=== PATIENT | female | born 1980 | race Caucasian/White ===

== ENCOUNTER 2020-09-03 16:06 | Emergency (ER) | payer OTHER, SELFPAY ==
[2020-09-03 16:26] VITALS: BP 128/68; PULSE 90; RESP 18; TEMP 36.7; O2SAT 92; BMI 44.9
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
--- NOTE | 2020-09-03 17:48 | PC.NURSE ---
PLAN IS TO LET PT SLEEP AND ADDRESS HOW PT WILL GET HOME LATER. PT STATES NO RIDE HOME AND UNABLE TO AMBULATE LONG DISTANCES
[2020-09-03 19:28] VITALS: BP 109/54; PULSE 98; RESP 16; O2SAT 98
--- NOTE | 2020-09-04 00:38 | PC.NURSE ---
pt has been sleeping for most of her stay in the er. pt reports that she has no ride home. assisted pt with charging phone, so she can try and call for a ride. pt states several times that she will not be able to find a ride home. pt ambulatory to bathroom with steady gait. pt's dscharge paperwork printed, pt ready as soon as she has a ride. case management tried to get her a lyft, yarn preparation supervisor was willing to give taxi voucher but cabs stopped running after 9pm.
--- NOTE | 2020-09-04 04:54 | PC.NURSE ---
PT AWAKE, RESTING ON STRETCHER. PT ASKING ABOUT HOSPITAL SHUTTLE. UNSURE IF SHUTTLE IS RUNNING, PT TOLD WE WILL GIVE HER A BUS PASS IN THE MORNING.
[2020-09-04 05:06] VITALS: BP 116/59; PULSE 90; RESP 16; TEMP 36; O2SAT 97
== END 2020-09-04 06:05 | disposition home or self-care (01) ==
PROVIDERS: Emergency Provider Emergency Medicine
DX: F10.920 Alcohol use, unspecified with intoxication, uncomplicated (principal); M54.5 Low back pain
CPT/HCPCS: 99284

== ENCOUNTER 2025-06-22 15:09 | Inpatient (IN) | payer MEDICAID, SELFPAY ==
[2025-06-22] VITALS (8 sets, daily range): BP systolic 123–160; BP diastolic 80–111; PULSE 71–114; RESP 16–20; TEMP 36.7–37.1; O2SAT 95–99; BMI 36.2
--- NOTE | ~2025-06-22 | CT_ITS ---
CLINICAL HISTORY: fall neck pain CT cervical spine without IV contrast Comparison: None provided Findings: Straightening of normal cervical lordosis, C-collar is present. no dislocation or spondylolisthesis. No acute fracture or suspicious osseous lesion. Bridging prevertebral osteophyte C6-7, small prevertebral osteophytes C5, mild osteoarthrosis of the median atlantoaxial articulation. Disc heights are maintained. Unremarkable facets. Unremarkable prevertebral soft tissue. Lung apices clear. Unremarkable soft tissue of the neck and visualized intracranial contents. Impression: 1. No acute finding. 2. Mild degenerative changes of the cervical spine. This document has been electronically signed by: Shauna Gonsales MD on 06/22/2025 16:56:37
--- NOTE | ~2025-06-22 | CT_ITS ---
CLINICAL HISTORY: fall head strike hematoma CT head without contrast Comparison: None Findings: No acute hemorrhage, acute major vascular distribution infarct, intracranial mass, midline shift or hydrocephalus. Empty sella. Cystic lesion of the pineal gland, partially calcified thin cystic wall 8 x 7 x 8 mm. Visualized paranasal sinuses and mastoid air cells normal. Orbits unremarkable. The cranium appears intact. Soft tissue contusion of the left skull base with lobulated subcutaneous hyperdensity roughly 4.2 x 1.2 cm on the axial plane, 3.4 cm in CC dimension, suggestive of hematoma. Impression: 1. No acute intracranial finding. 2. Soft tissue contusion and hematoma of the left skull base. 3. 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 4. Incidental note of empty sella. This document has been electronically signed by: Shauna Gonsales MD on 06/22/2025 17:02:26
--- NOTE | ~2025-06-22 | CT_ITS ---
CLINICAL HISTORY: fal;l chest trauma Exam: CT chest with IV contrast Comparison: None provided Findings: Heart, great vessels and mediastinum are unremarkable. No pericardial effusion. No acute vascular injury. No lymphadenopathy. No actionable thyroid nodule. Unremarkable imaged lower neck and chest wall. No acute infiltrates or pulmonary injury. Patent central airway. No pleural effusion or pneumothorax. No significant pulmonary nodule or mass. No acute fracture or traumatic malalignment. Mild degenerative changes of the thoracic spine. Please see separate CT abdomen and pelvis report. Impression: No acute finding. This document has been electronically signed by: Shauna Gonsales MD on 06/22/2025 17:04:57
--- NOTE | ~2025-06-22 | XR_ITS ---
CLINICAL HISTORY: FALL Exam: Pelvis and bilateral hip five views Comparison: None Findings: 6 images were obtained. No acute fracture or traumatic malalignment. No apparent degenerative or arthritic changes of the hips, SI joints or pubic symphysis. Soft tissue calcification lateral to the anterior iliac crest. Excreted contrast in the left distal ureter noted. Impression: No acute finding. This document has been electronically signed by: Shauna Gonsales MD on 06/22/2025 16:47:02
--- NOTE | ~2025-06-22 | CT_ITS ---
CLINICAL HISTORY: Abdominal trauma fall Exam: CT abdomen and pelvis with IV contrast Comparison: None provided Findings: Please see separate CT chest report. Liver is enlarged, 18.4 cm in craniocaudad dimension, diffuse steatosis, no hepatic lesion is seen. Patent hepatic and portal veins. Gallbladder, spleen, pancreas, adrenal glands, kidneys, ureters are unremarkable. Lobulated renal contours bilaterally, left renal upper pole scars. Nearly empty bladder, limiting evaluation, no calculus or perivesicular fatty stranding. Unremarkable uterus and left adnexa. Right ovarian cyst 2.8 cm, probably dominant follicle. Small amount of liquid stool is noted, the cecum to descending colon is decompressed, limiting evaluation, there is suggestion of the mural thickening of ascending colon, engorged vasa recta of the cecum to descending colon. Mild diffuse mural thickening of the rectosigmoid. Mild pericolonic fatty haziness in the left lower quadrant, no colonic diverticulosis. Stomach and small bowel are unremarkable. Appendix is not seen, no pericecal inflammation. Probable lipomatosis of ileocecal valve. Unremarkable vasculature. No bulky lymph nodes. No ascites or pneumoperitoneum. Small fat containing umbilical hernia, no fatty stranding. No acute fracture or dislocation. Mild degenerative changes of lumbar spine. Impression: 1. No acute traumatic injury. 2. Suspect mild pancolitis. 3. Hepatomegaly with steatosis. This document has been electronically signed by: Shauna Gonsales MD on 06/22/2025 17:14:24
--- NOTE | 2025-06-22 15:17 | ED_ITS ---
HPI - General Adult General Chief complaint: Seizure Stated complaint: sz Etoh w/drawl Time Seen by Provider: 06/22/25 15:11 Source: patient and EMS Mode of arrival: EMS Limitations: other (poor historian ) History of Present Illness ED Provider: SEAN Painting HPI narrative: Chief Complaint: ?I think I had some kind of seizure in the bath and now I have a huge lump on the back of my head.? History of Present Illness: Viky presents from home after an unwitnessed event while in the bathtub earlier today ( unclear when) . She reports ?something like a seizure? followed by discovery of a large hematoma over the back left side of her head. She does not recall the exact circumstances of the event or whether a seizure truly occurred. She notes persistent headache, nausea, and dizziness for several days and states she is ?having trouble walking.? She also reports new bruising to her legs. Denies chest pain or shortness of breath. Last alcohol consumption was 4 days ago after an approximate 10-day binge; she reports being 4 days sober and denies any prior alcohol-withdrawal seizures drinks 1 L of 99 a day ( thinks thats vodka but nusure) . Admits prior cocaine use, denies any injection drug use. Related Data Allergies Allergy/AdvReac Type Severity Reaction Status Date / Time Penicillins (PENICILLINS) Allergy Intermediate RASH Verified 06/22/25 15:21 codeine (CODEINE) Allergy Unknown GI UPSET Verified 06/22/25 15:21 Review of Systems 2 Review of Systems: Review of Systems: ? General: no information provided. ? HEENT: Positive for headache, large hematoma back left scalp. ? Neurologic: Reports dizziness for several days, difficulty ambulating, possible seizure episode with amnesia. ? GI: Positive for nausea. ? Skin/MSK: Reports rash; reports bruising to legs. ? Cardiopulmonary: Denies chest pain, denies shortness of breath. (Only systems reviewed above; no additio nal systems discussed.) Yes all other systems are reviewed and are negative PMFSH Past Medical History Attestation statement: The following information was validated with the patient. Source: old records reviewed and nursing notes reviewed Social History Social History Alcohol intake: current Alcohol type: hard liquor Smoked in Last 30 Days: No Use of substances other than those prescribed or required for medical reasons: Yes Substance Use Type: Crack/Cocaine Advance Directives: No Advance Directives Information Provided: No Patient : No Physical Exam ED Exam Exam: Appearance: Alert.? Oriented X3.? No acute distress.? Head: Normocephalic, traumatic appearing Large left occipital scalp hematoma Eyes: Pupils equal, round and reactive to light.? ENT: Pharynx normal.? Neck: Normal inspection.? Neck supple.?+collar in place CVS: Normal heart rate and rhythm.? Pulses normal.? Respiratory: No respiratory distress.? Breath sounds normal.? Abdomen: Soft and nontender.? Skin: Skin warm and dry.? Normal skin color.? Normal skin turgor.?+ superficial abrasions/road rash to right buttocks to left buttocks Extremities: No lower extremity edema.? No calf ttp. 5/5 strength to bilateral upper and lower extremities Back: No midline tenderness, no C-spine tenderness, full range of motion, no CVA tenderness bilaterally Neuro: Oriented X 3.? No motor deficit.? No sensory deficit. CN 2-12 intact Vital Signs: Vital Signs - 24 hr 06/22/25 15:18 06/22/25 16:17 06/22/25 17:30 Temperature 98.1 F 98.1 F 98.7 F Pulse Rate 114 H 105 H 98 Respiratory Rate 20 18 18 Blood Pressure 148/111 H 142/99 H 150/99 H Pulse Oximetry 96 96 99 Oxygen Delivery Method Room Air Room Air Room Air BMI result Body Mass Index 36.2 vss Course Reevaluation(s) Reevaluation #1: Patient reports difficulty with ambulating, left lower extremity noted to have ecchymosis to left anterior castro. Time: 15:35 Reevaluation #2: Patient's CBC with leukopenia this is a new finding alsonoted to have thormbocytopenia 18. Chemistry with low potassium 3.2 IV potassium ordered. She has an anion gap of 23 likely in the setting of alcohol use. BUN Creatinine slightly higher than usual. Will encourage p.o. hydration. Total bili 3.8 transaminases elevated she does not have abdominal pain or tenderness to palpation on exam this could be in the setting of hepatitis. Hepatitis panel will be added. CT abdomen pelvis pending. Total CPK 1267 IV fluids running. Time: 15:40 Reevaluation #3: Lactic acid 3.0 at this time infection suspected will give antibiotics as well as a 30 cc/kilos bolus. Scans are still pending. Patient remains without seizure-like activity. She was started on phenobarbital At this time if sepsis focused exam was and at the bedside Time: 17:06 Additional Reevaluation(s): CT chest no acute findings. CT head with no acute intracranial findings soft tissue contusion and hematoma of the left skull base. 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 empty sella. No acute findings in the cervical spine. Hip x-ray no acute finding. CT abdomen pelvis pending CT abdomen pelvis with no acute traumatic injury suspected mild russo colitis hepatomegaly with steatosis. Plan hospital admission Medications Administered Generic Name Dose Route Start Last Admin Trade Name Freq PRN Reason Stop Dose Admin Magnesium Sulfate 2 gm in 50 mls @ 25 mls/hr 06/22/25 16:03 06/22/25 16:13 Magnesium Sulfate/H2o IV 06/22/25 18:02 25 mls/hr ONCE ONE Administration Sodium Chloride 2,784 mls @ 2,784 mls/hr 06/22/25 17:04 06/22/25 17:07 Ns 30 ml/kg infuse over 1 hr (2784 ml) 06/22/25 18:03 2,784 mls/hr IV Administration .Q1H STA Potassium Chloride 10 meq in 100 mls @ 100 mls/hr 06/22/25 17:15 06/22/25 17:13 Potassium Chloride/H20 IV 06/22/25 19:14 100 mls/hr Q1H KATHERIN Administration Discontinued Medications Generic Name Dose Route Start Last Admin Trade Name Freq PRN Reason Stop Dose Admin Diazepam 2.5 mg 06/22/25 15:11 06/22/25 15:32 Diazepam 10 Mg/2 Ml Cartridge IVPUSH 06/22/25 15:12 2.5 mg STAT STA Administration Diphtheria/Tetanus/Acell Pertussis 0.5 ml 06/22/25 17:08 06/22/25 17:13 Diphth,Pertus(Acell),Tet Adult 0.5 Ml Syringe IM 06/22/25 17:09 0.5 ml .ONCE ONE Administration Folic Acid 1 mg 06/22/25 16:03 06/22/25 17:23 Folic Acid 1 Mg Tablet PO 06/22/25 16:04 1 mg ONCE ONE Administration Ceftriaxone Sodium 1 gm/ 50 mls @ 100 mls/hr 06/22/25 16:23 06/22/25 17:19 Sodium Chloride IV 06/22/25 16:52 Infused ONCE ONE Infusion Iohexol 100 ml 06/22/25 15:45 06/22/25 15:46 Iohexol 350 Mg/Ml 100 Ml Infus..Btl IV 06/22/25 15:46 85 ml ONCE ONE Administration Phenobarbital Sodium 251 mg 06/22/25 17:15 06/22/25 17:23 Phenobarbital Sodium 130 Mg/Ml Im Once IM 06/22/25 17:16 251 mg ONCE ONE Administration Thiamine HCl 100 mg 06/22/25 16:03 06/22/25 17:23 Thiamine Hcl 100 Mg Tablet PO 06/22/25 16:04 100 mg ONCE ONE Administration Medical Decision Making Medical Decision Making [facility] Narrative: 1519 Unwitnessed head injury with possible seizure, large scalp hematoma, and history of recent heavy alcohol use. Must rule out intracranial hemorrhage and other acute injuries. Problem #1: Possible intracranial hemorrhage / head trauma Assessment: Large left occipital scalp hematoma following unwitnessed event; patient has amnesia for event and reports seizure-like activity. Ongoing headache, dizziness, nausea, and gait disturbance raise concern for intracranial pathology. Plan: * CT head (non-contrast) STAT ? already ordered. * CT cervical spine, chest, abdomen, pelvis ? ordered to evaluate for additional traumatic injuries. * Draw CBC, CMP, coagulation studies, EtOH level, and additional labs after CT imaging as discussed. * Reassess following imaging results; proceed with neurosurgical consult if intracranial bleed identified. Problem #2: Alcohol use disorder, recent heavy use Assessment: Patient reports 10-day binge ending 4 days ago, currently sober x4 days, no prior withdrawal seizures but at risk for withdrawal complications. Plan: * Monitor for signs/symptoms of alcohol withdrawal while in ED. * Include EtOH level on initial labs. * Seizure precautions * Diazepam to raise seizure threshold Follow-up: Will update plan based on imaging and lab findings; disposition to be determined after full assessment. Will rule out traumatic injury to head, neck, chest, abdomen and pelvis. Differential Diagnosis Differential Diagnoses: The differential diagnosis associated with the presentation includes (Will rule out traumatic injury to head, neck, chest, abdomen and pelvis.) Admission/Observation Consideration of admission/observation: Escalation of care including admission/observation considered Consult Healthcare Provider Management of the patient was discussed with: Hospitalist Lab Data MDM Lab Attestation statement: I reviewed the patient's lab results. 06/22/25 15:30 06/22/25 15:30 Labs: Lab Results 06/22/25 06/22/25 Range/Units 15:30 16:29 WBC 4.5 L (4.8-10.8) X10*3/uL RBC 3.89 L (4.20-5.50) X10*6/uL Hgb 12.8 (12.0-16.0) g/dl Hct 36.4 L (37.0-47.0) % MCV 93.6 (80.0-98.0) fL MCH 32.9 (27.0-33.0) pg MCHC 35.2 H (31.0-35.0) g/dl RDW 15.8 (11.0-16.0) % Plt Count 18 L* (160-400) X10*3/uL MPV 13.3 H (9.4-12.3) fL Immature Gran % (Auto) Cancelled Neut % (Auto) Cancelled Lymph % (Auto) Cancelled [place] % (Auto) Cancelled Eos % (Auto) Cancelled Baso % (Auto) Cancelled Lymph # (Auto) Cancelled [place] # (Auto) Cancelled Eos # (Auto) Cancelled Baso # (Auto) Cancelled Abs Immat Gran (auto) Cancelled Absolute Neuts (auto) Cancelled Absolute Nucleated RBC 0.020 H (0.0-0.012) X10*3/uL Nucleated RBC % (auto) 0.4 H (0.0-0.2) /100WBC Neutrophils % (Manual) 76 H (45-73) % Band Neutrophils % 3 (3-5) % Lymphocytes % (Manual) 18 L (20-40) % Atypical Lymphs % (Man) 3 (0-6) % Abs Neuts (Manual) 3.6 (2.0-8.3) X10*3/uL Lymphocytes # (Manual) 0.8 L (1.2-4.9) X10*3/uL Atyp Lymphs # (Manual) 0.1 x10*3/uL Platelet Estimate DECREASED (NORMAL) Plt Morphology Comment NORMAL RBC Morphology NOTED Microcytosis 1+ (5-14) /OIF Schistocytes 1+ (0-2) /OIF Smear Tech's Comments MANUAL DIFF PT 14.8 H (11.2-13.5) SEC INR 1.2 H (0.9-1.1) Sodium 135 (135-145) mmol/L Potassium 3.2 L (3.3-5.1) mmol/L Chloride 85 L (96-108) mmol/L Carbon Dioxide 30 H (22-29) mmol/L Anion Gap 23 H (12-20) BUN 23 H (9-16) mg/dL Creatinine 1.20 (0.5-1.4) mg/dL Estim Creat Clear Calc 65.4 Estimated GFR 49 Random Glucose 128 H (60-115) mg/dL Lactic Acid 3.0 H* (0.5-2.0) mmol/L Calcium 9.7 (8.4-10.2) mg/dL Magnesium 1.1 L* (1.6-2.6) mg/dL Total Bilirubin 3.8 H (0.0-1.0) mg/dL AST 297 H (5-31) U/L ALT 67 H (0-31) U/L Alkaline Phosphatase 231 H (39-117) U/L Total Creatine Kinase 1267 H (26-140) U/L Total Protein 8.1 H (6.5-8.0) g/dL Albumin 3.9 (3.5-5.0) g/dL Ethyl Alcohol < 10 mg/dL Independent Interpretation I performed an independent interpretation of an: EKG and CT Scan (Impression: 1. No acute traumatic injury. 2. Suspect mild pancolitis. 3. Hepatomegaly with steatosis.) Radiology Impression Discussion of test interpretation with radiology: I have reviewed the radiologist's reading. Independent Historian Clinical information obtained from an independent historian. History obtained from or confirmed by: EMS External Record Review External record reviewed: Inpatient record, Office record, Outpatient record, Prior outpatient labs, Prior outpatient radiology, Primary care record and Outside ED record Chronic Conditions Patient?s care impacted by: Other (see pmfsh) Social Determinants Patient?s care significantly limited by Social Determinants of Health including: Inadequate housing, Low income, Alcoholism and drug addiction in family, Problems related to primary support group, Unemployment, Problems related to employment and Other Social Determinant of Health Critical Care Time Critical Care Time Critical Care Time: Yes Total Critical Care Time: 35 Attestation: I attest to this time spent taking care of the patient, obtaining history, physical, reviewing labs, imaging, treatment of patients condition +/- specialist/hospitalist consult +/- procedure Discharge Plan Discharge Clinical Impression: Alcohol withdrawal seizure, Abrasion, Fall, Rhabdomyolysis, Thrombocytopenia, Leukopenia, Acidosis, lactic, Transaminitis, Hyperbilirubinemia Patient Disposition: Admitted As Inpatient Print Language: Cam[place]onian
[2025-06-22] MEDS: diazePAM 10 MG/2 ML CARTRIDGE 2.5 MG IVPUSH (15:32)
[2025-06-22] MEDS: iohexoL 350 MG/ML 100 ML INFUS..BTL IV (15:46)
[2025-06-22 15:57] LABS: Hematocrit 36.4 % (37.0-47.0); Hemoglobin 12.8 g/dl (12.0-16.0); Mean Corpuscular HGB Conc 35.2 g/dl (31.0-35.0); Mean Corpuscular Hemoglobin 32.9 pg (27.0-33.0); Mean Corpuscular Volume 93.6 fL (80.0-98.0); NRBC Abs Auto 0.020 X10*3/uL (0.0-0.012); NRBC Pct Auto 0.4 /100WBC (0.0-0.2); Red Blood Count 3.89 X10*6/uL (4.20-5.50); White Blood Count 4.5 X10*3/uL (4.8-10.8)
[2025-06-22 15:58] LABS: Platelet Count 18 X10*3/uL (160-400)
[2025-06-22 16:03] LABS: Alanine Aminotransferase 67 U/L (0-31); Albumin Level 3.9 g/dL (3.5-5.0); Alkaline Phosphatase 231 U/L (39-117); Anion Gap 23 (12-20); Aspartate Amino Transferase 297 U/L (5-31); Blood Urea Nitrogen 23 mg/dL (9-16); Calcium 9.7 mg/dL (8.4-10.2); Carbon Dioxide 30 mmol/L (22-29); Chloride 85 mmol/L (96-108); Creatinine Clr Calc Pharmacy 65.4; Estimated Glomerular Filt Rate 49; Magnesium 1.1 mg/dL (1.6-2.6); Potassium 3.2 mmol/L (3.3-5.1); Sodium 135 mmol/L (135-145); Total Protein 8.1 g/dL (6.5-8.0)
[2025-06-22 16:04] LABS: INTERNATIONAL NORM RATIO 1.2 (0.9-1.1); Prothrombin Time 14.8 SEC (11.2-13.5)
--- NOTE | 2025-06-22 16:12 | PC.NURSE ---
Plan to hold on PO meds until cleared from [facility]. SEAN Donovan aware of plan
[2025-06-22] MEDS: Magnesium Sulfate/H2O 2 GM/50 ML PIGGYBACK IV (16:13)
[2025-06-22 17:00] LABS: Atypical Lymph Absolute Manual 0.1 x10*3/uL; Atypical Lymphs Percent Manual 3 % (0-6); Band Neutrophils Percent 3 % (3-5); Lymphocytes Absolute Manual 0.8 X10*3/uL (1.2-4.9); Lymphocytes Percent Manual 18 % (20-40); Neutrophils Absolute Manual 3.6 X10*3/uL (2.0-8.3); Neutrophils Percent Manual 76 % (45-73)
[2025-06-22 17:01] LABS: Microcytosis 1+ (5-14) /OIF; RBC Morphology NOTED; Schistocytes 1+ (0-2) /OIF
[2025-06-22] MEDS: Potassium Chloride/H20 10 MEQ/100 ML PIGGYBACK 100 MEQ IV ×2 (17:13→18:22)
[2025-06-22] MEDS: Diphth,Pertus(ACell),Tet Adult 0.5 ML SYRINGE IM (17:13)
--- NOTE | 2025-06-22 17:14 | ECG_ITS ---
Test Reason : FALL Blood Pressure : */* mmHG Vent. Rate : 98 BPM Atrial Rate : 98 BPM P-R Int : 132 ms QRS Dur : 72 ms QT Int : 420 ms P-R-T Axes : 58 2 34 degrees QTcB Int : 536 ms Normal sinus rhythm Prolonged QT Abnormal ECG No previous ECGs available Referred By: Dee Painting Electronically Signed By: CHELO ROCKWELL MD
--- NOTE | 2025-06-22 17:16 | PC.NURSE ---
Antibiotic given after multiple attempts for second set of blood cultures.
--- NOTE | 2025-06-22 17:18 | PC.NURSE ---
[facility]ar removed at this time per SEAN Donovan. Pt awake and alert. Remains with 10/10 back of head pain where hematoma noted.
[2025-06-22] MEDS: PHENobarbitaL sodium 130 MG/ML IM ONCE 251 MG IM (17:23)
--- NOTE | 2025-06-22 18:17 | PM.IMHP ---
History of Present Illness Date of Service: 06/22/25 Chief Complaint: Alcohol withdrawal 44-year-old female with known history of alcohol abuse disorder presents after likely withdrawal seizure at home. She states she drinks about 10 or more nips a day for the last several weeks and decided she wanted to quit yesterday so she through all of her alcohol away. Friends noticed seizure activity and called 911 for transport to ER. In the emergency room, workup including CTs of abdomen chest head and cervical spine failed to demonstrate any acute pathology. Lab significant for thrombocytopenia with a platelet count of 18,000; INR 1.2; hypokalemia 3.2 and a magnesium of 1.1. AST/ALT 297/67 total creatinine kinase 1267. At this time she will be admitted for phenobarb protocol for alcohol withdrawal and divalent repletion Review of Systems Review of Systems: Denies chest pain Denies shortness of breath Denies nausea vomiting diarrhea Denies fever chills PMFSH Social History Alcohol intake: current Alcohol type: hard liquor Smoked in Last 30 Days: No Use of substances other than those prescribed or required for medical reasons: Yes Substance Use Type: Crack/Cocaine Advance Directives: No Advance Directives Information Provided: No Patient : No Meds Allergies Allergy/AdvReac Type Severity Reaction Status Date / Time Penicillins (PENICILLINS) Allergy Intermediate RASH Verified 06/22/25 15:21 codeine (CODEINE) Allergy Unknown GI UPSET Verified 06/22/25 15:21 Active Medications: Current Medications Acetaminophen (Acetaminophen 325 Mg Tablet) 650 mg PO Q6H PRN PRN Reason: Pain, Mild 1-3,fever,headache Calcium Carbonate (Calcium Carbonate 750 Mg Tab.Chew) 750 mg PO Q4H PRN PRN Reason: Heartburn Diazepam (Diazepam 10 Mg/2 Ml Cartridge) 10 mg IVPUSH Q6H PRN PRN Reason: agitation Potassium Chloride (Potassium Chloride/H20) 10 meq in 100 mls @ 100 mls/hr IV Q1H [facility] Stop: 06/22/25 19:14 Last Admin: 06/22/25 17:13 Dose: 100 mls/hr Lactated Ringer's (Lr) 1,000 mls @ 100 mls/hr IVCONT .Q10H [facility] Lactated Ringer's (Lr) 1,000 mls @ 125 mls/hr IVCONT .Q8H [facility] Magnesium Hydroxide (Milk Of Magnesia 30 Ml Oral.Susp) 30 ml PO DAILY PRN PRN Reason: Constipation Melatonin (Melatonin 3 Mg Tablet) 6 mg PO BEDTIME PRN PRN Reason: Insomnia Ondansetron HCl (Ondansetron Hcl 4 Mg/2 Ml Vial) 4 mg IVPUSH Q8H PRN PRN Reason: Nausea and Vomiting Pharmacy Consult (Consult Rx Etoh Phenob Im/Po) 1 each MISCELLANE ONCE PRN; Protocol PRN Reason: Consult order Phenobarbital (Phenobarbital 15 Mg Tablet) 45 mg PO BID [facility] Stop: 06/24/25 21:01 Phenobarbital (Phenobarbital 30 Mg Tablet) 30 mg PO BID [facility] Stop: 06/26/25 21:01 Phenobarbital (Phenobarbital 15 Mg Tablet) 15 mg PO DAILY [facility] Stop: 06/28/25 09:01 Phenobarbital Sodium (Phenobarbital Sodium 130 Mg/Ml Vial Im Q3hx2) 188 mg IM Q3H [facility] Stop: 06/23/25 00:01 Sodium Chloride (0.9 % Sodium Chloride Flush 3 Ml Syringe) 3 ml IVFLUSH QSHIFT [facility] Physical Exam Vital Signs and Narrative: Vital Signs: Last Vital Signs Temp 98.7 F 06/22/25 17:30 Pulse 98 06/22/25 17:30 Resp 18 06/22/25 17:30 BP 150/99 H 06/22/25 17:30 Pulse Ox 99 06/22/25 17:30 O2 Del Method Room Air 06/22/25 17:30 BMI result Body Mass Index 36.2 Const: Other: Awake alert disheveled no acute distress Resp: Other: Clear to auscultation bilaterally no rales rhonchi or wheezes Cardio: Other: No S4; positive S1-S2; no S3 murmurs rubs or gallops GI: Other: Soft nontender nondistended normoactive bowel sounds Neuro: Other: Cranial nerves 2-12 grossly intact as tested. Motor is 5/5 all extremities. Sensation is intact. Cognition appropriate. Gait not observed Extrem: Other: No edema bilaterally Results Labs 06/22/25 15:30 06/22/25 15:30 Labs: Laboratory Results - last 24 hr 06/22/25 06/22/25 15:30 16:29 MCV 93.6 MCH 32.9 MCHC 35.2 H RDW 15.8 Plt Count 18 L* MPV 13.3 H Immature Gran % (Auto) Cancelled Neut % (Auto) Cancelled Lymph % (Auto) Cancelled [place] % (Auto) Cancelled Eos % (Auto) Cancelled Baso % (Auto) Cancelled Lymph # (Auto) Cancelled [place] # (Auto) Cancelled Eos # (Auto) Cancelled Baso # (Auto) Cancelled Abs Immat Gran (auto) Cancelled Absolute Neuts (auto) Cancelled Absolute Nucleated RBC 0.020 H Nucleated RBC % (auto) 0.4 H Neutrophils % (Manual) 76 H Band Neutrophils % 3 Lymphocytes % (Manual) 18 L Atypical Lymphs % (Man) 3 Abs Neuts (Manual) 3.6 Lymphocytes # (Manual) 0.8 L Atyp Lymphs # (Manual) 0.1 Platelet Estimate DECREASED Plt Morphology Comment NORMAL RBC Morphology NOTED Microcytosis 1+ (5-14) Schistocytes 1+ (0-2) Smear Tech's Comments MANUAL DIFF PT 14.8 H INR 1.2 H Anion Gap 23 H Estim Creat Clear Calc 65.4 Estimated GFR 49 Random Glucose 128 H Lactic Acid 3.0 H* Calcium 9.7 Magnesium 1.1 L* Total Bilirubin 3.8 H AST 297 H ALT 67 H Alkaline Phosphatase 231 H Total Creatine Kinase 1267 H Total Protein 8.1 H Albumin 3.9 Ethyl Alcohol < 10 Assessment and Plan (1) Alcohol withdrawal seizure: Qualifiers: Complication of substance-induced condition: uncomplicated Qualified Code(s): F10.930 - Alcohol use, unspecified with withdrawal, uncomplicated; R56.9 - Unspecified convulsions Status: Acute (2) Thrombocytopenia: Status: Acute (3) Rhabdomyolysis: Qualifiers: Rhabdomyolysis type: non-traumatic Qualified Code(s): M62.82 - Rhabdomyolysis Status: Acute Plan 44-year-old female with known history of alcohol use disorder presents today after withdrawal seizure. In the ER found to be hypokalemic hypomagnesemic with a transaminitis. No further seizures since presentation to ER 1. Alcohol use disorder -admit patient and observe on CIWA scale -phenobarb protocol -pulse dose IV Valium as indicated -seizure precautions 2. Thrombocytopenia (in backdrop of chronic alcohol abuse) -no active bleeding at this time; CTA of head with external hematoma only -no indication for platelets at this time -recheck CBC in a.m.; further plans based on forthcoming data 3. Rhabdomyolysis -mild without renal dysfunction -volume repletion with lactated Ringer's -repeat CPK in a.m. Full code Pneumatics Patient will require at least 2 days of inpatient hospital stay going forward to treat acute alcohol use disorder with phenobarb and to monitor thrombocytopenia and signs of bleeding. This can not be achieved a lesser acute setting Quality Stroke Does the patient have a stroke diagnosis?: No VTE Prior VTE?: No VTE Risk Level:: Medical - moderate - high VTE Device Contraindication: N/A - Device Ordered VTE Drug Contraindication: Treatment Not Indicated
--- OUTSIDE RECORDS SUMMARY | 2025-06-22 18:24 | XMS_ITS | Clinical Summary ---
Author Organization [employer] Address [address] [place] [address] Care Team Providers Care [employer] Name Role Phone Unavailable Primary Care Provider Unavailabl e Immunizations Immunization Administration Dates Next Due Pfizer Covid-19 Vaccine 12+ Bivalent 08/03/2022 Social History Tobacco Use Types Packs/Day Years Used Date Smoking Tobacco: Never Assessed Comments Unknown Sex and Gender Information Value Date Recorded Sex Assigned at Not on file Legal Sex Female 2:27 PM EST Gender Identity Not on file Sexual Orientation Not on file Plan of Treatment Health Maintenance Due Date Last Done Comments Depression Screening 1981 HIV Screening 1981 SDOH Screening 1981 Disability Screening 1981 Alcohol/Substance Use Screening 1993 Tobacco Screening 1993 Family Planning (PISQ) 1996 HPV Vaccines (1 - 3-dose series) 1996 Hepatitis C Screening 11/14/1999 DTaP/Tdap/Td Vaccines (1 - Tdap) 2000 Hepatitis B Vaccines (1 of 3 - 19+ 3-dose series) 2000 Pap Smear 2002 Cervical Cancer Screening 11/14/2011 HPV/Cotest 11/14/2011 Mammogram 2021 COVID-19 Vaccine (2 - 2024-2 6 season) 2025 08/03/2022 Influenza Vaccine (#1) 2025 Zoster Vaccines (1 of 2) 11/14/2031 RSV Patients and Pa tients Aged 60 years or older (1 - 1-dose 75+ series) 2056 HIB Vaccines Aged Out No longer eligi ble based on patient's age to complete this topic Hepatitis A Vaccines Aged Out No long er eligible based on patient's age to complete this topic IPV Vaccines Aged Out No longer eligi ble based on patient's age to complete this topic Meningococcal B Vaccine Aged Out No l onger eligible based on patient's age to complete this topic Meningococcal Vaccine Aged Out No hazel norma eligible based on patient's age to complete this topic Pneumococcal Vaccine: Pediat rics (0 to 5 Years) and At-Risk Patients (6 to 49) Years Aged Out No longer eligi ble based on patient's age to complete this topic RSV under 20 months Aged Out No longe r eligible based on patient's age to complete this topic Rotavirus Vaccines Aged Out No longer eligible based on patient's age to complete this topic Insurance [facility] [employer]
[2025-06-22 18:32] LABS: Reflex Lactate? Lactic Acid Added
--- NOTE | 2025-06-22 18:34 | HO.NURTONUR ---
44 yo F brought from home following unwitnessed seizure while in bathroom per patient. Pt presents with multiple wounds and bruising to back/extremities/groin area that patient states she got from being stupid . Story unclear. Pt states prior ETOH and cocaine use, states has not drank in 4 days, was on a 10 day binge . Denies previous withdrawal seizures. Multiple labs not within normal range. IV Mag/ K provided. IV antibiotics given as well and sepsis fluid bolus. Two IV access points, 20 g RAC and 20g LAC. Tachycardic on monitor in low 100s. Afebrile. C-Collar cleared by ED provider.
--- NOTE | 2025-06-22 19:07 | PC.NURSE ---
Pt with large amount of loose stool in bed. Linens changed. Wound to right buttocks cleaned and dried, leave open to air per SEAN Donovan
[2025-06-22] MEDS: Lactated Ringers 1,000 ML 125 ML IVCONT (19:16)
[2025-06-22 19:55] LABS: ~Lactic Acid-LAB USE ONLY 2.1 mmol/L (0.5-2.0)
[2025-06-22 20:03] LABS: Cancel Lactic Acid Canceled
[2025-06-22 20:04] LABS: Reflex Lactate? 2 N
[2025-06-22 20:38] LABS: Anion Gap 18 (12-20); Blood Urea Nitrogen 20 mg/dL (9-16); Calcium 8.3 mg/dL (8.4-10.2); Carbon Dioxide 27 mmol/L (22-29); Chloride 93 mmol/L (96-108); Creatinine Clr Calc Pharmacy 85.3; Estimated Glomerular Filt Rate > 60; Magnesium 1.7 mg/dL (1.6-2.6); Potassium 3.0 mmol/L (3.3-5.1); Sodium 135 mmol/L (135-145)
[2025-06-22] MEDS: PHENobarbitaL sodium 130 MG/ML VIAL IM Q3Hx2 188 MG IM (21:24)
--- NOTE | 2025-06-22 21:47 | PC.NURSE ---
Pt assisted to bed russo; watery stool.
[2025-06-23] VITALS (15 sets, daily range): BP systolic 108–169; BP diastolic 57–106; PULSE 93–111; RESP 13–20; TEMP 36.4–37.4; O2SAT 97–100; BMI 36.2
[2025-06-23] MEDS: PHENobarbitaL sodium 130 MG/ML VIAL IM Q3Hx2 188 MG IM (00:15)
[2025-06-23] MEDS: 0.9 % Sodium Chloride Flush 3 ML SYRINGE IVFLUSH (00:16)
[2025-06-23 05:30] LABS: Hematocrit 28.6 % (37.0-47.0); Hemoglobin 9.7 g/dl (12.0-16.0); Mean Corpuscular HGB Conc 33.9 g/dl (31.0-35.0); Mean Corpuscular Hemoglobin 33.2 pg (27.0-33.0); Mean Corpuscular Volume 97.9 fL (80.0-98.0); NRBC Abs Auto 0.020 X10*3/uL (0.0-0.012); NRBC Pct Auto 0.7 /100WBC (0.0-0.2); Red Blood Count 2.92 X10*6/uL (4.20-5.50); White Blood Count 2.9 X10*3/uL (4.8-10.8)
[2025-06-23] MEDS: Lactated Ringers 1,000 ML 125 ML IVCONT ×3 (05:31→22:29)
[2025-06-23 05:41] LABS: Potassium 2.7 mmol/L (3.3-5.1)
[2025-06-23 05:42] LABS: Alanine Aminotransferase 43 U/L (0-31); Albumin Level 3.0 g/dL (3.5-5.0); Alkaline Phosphatase 156 U/L (39-117); Anion Gap 15 (12-20); Aspartate Amino Transferase 146 U/L (5-31); Blood Urea Nitrogen 17 mg/dL (9-16); Calcium 8.5 mg/dL (8.4-10.2); Carbon Dioxide 26 mmol/L (22-29); Chloride 95 mmol/L (96-108); Creatinine Clr Calc Pharmacy 86.3; Estimated Glomerular Filt Rate > 60; Magnesium 1.7 mg/dL (1.6-2.6); Sodium 133 mmol/L (135-145); Total Protein 6.3 g/dL (6.5-8.0)
[2025-06-23 06:21] LABS: Atypical Lymphs Percent Manual 1 % (0-6); Band Neutrophils Percent 0 % (3-5); Basophils Percent Manual 1 % (0-2); Eosinophils Percent Manual 1 % (0-4); Lymphocytes Absolute Manual 1.4 X10*3/uL (1.2-4.9); Lymphocytes Percent Manual 49 % (20-40); Monocytes Percent Manual 1 % (2-11); Neutrophils Absolute Manual 1.4 X10*3/uL (2.0-8.3); Neutrophils Percent Manual 47 % (45-73)
[2025-06-23 06:23] LABS: RBC Morphology NOTED
[2025-06-23] MEDS: Lactated Ringers 1,000 ML 100 ML IVCONT (06:24)
[2025-06-23] MEDS: Potassium Chloride/H20 10 MEQ/100 ML PIGGYBACK 100 MEQ IV ×2 (06:24→11:17)
[2025-06-23] MEDS: Potassium Chloride Packet 20 MEQ PACKET 40 MEQ PO (06:24)
[2025-06-23 06:50] LABS: Platelet Count 16 X10*3/uL (160-400)
[2025-06-23] MEDS: Potassium Phosphate/NS 15 MMOL/250 ML PLAST..BAG 62.5 MMOL IV ×2 (08:39→12:21)
--- NOTE | 2025-06-23 10:03 | PHA.MEDREC ---
Pharmacy Consult ? Medication Reconciliation Pharmacy has reviewed the medication reconciliation done by nursing.
--- NOTE | 2025-06-23 14:01 | P.PNIM_ITS ---
Subjective Subjective Date of Service: 06/23/25 Interval History: No seizures since admission. Doing well with phenobarb protocol Review of Systems Denies chest pain Denies shortness of breath Denies nausea vomiting diarrhea Denies fever chills Physical Exam 2 Vital Signs: Vital Signs: Last Vital Signs Temp 98.5 F 06/23/25 12:13 Pulse 93 06/23/25 12:13 Resp 20 06/23/25 12:13 BP 134/89 06/23/25 12:13 Pulse Ox 100 06/23/25 11:08 O2 Del Method Room Air 06/23/25 11:08 BMI result Body Mass Index 36.2 Const: Other: Awake alert disheveled no acute distress Resp: Other: Clear to auscultation bilaterally no rales rhonchi or wheezes Cardio: Other: No S4; positive S1-S2; no S3 murmurs rubs or gallops GI: Other: Soft nontender nondistended normoactive bowel sounds Neuro: Other: Cranial nerves 2-12 grossly intact as tested. Motor is 5/5 all extremities. Sensation is intact. Cognition appropriate. Gait not observed Extrem: Other: No edema bilaterally Objective Data Active Medications Acetaminophen (Acetaminophen 325 Mg Tablet) 650 mg PO Q6H PRN PRN Reason: Pain, Mild 1-3,fever,headache Last Admin: 06/23/25 06:25 Dose: 650 mg Documented By: PATRICK Calcium Carbonate (Calcium Carbonate 750 Mg Tab.Chew) 750 mg PO Q4H PRN PRN Reason: Heartburn Diazepam (Diazepam 10 Mg/2 Ml Cartridge) 10 mg IVPUSH Q6H PRN PRN Reason: agitation Lactated Ringer's (Lr) 1,000 mls @ 125 mls/hr IVCONT .Q8H [facility] Last Admin: 06/23/25 13:47 Dose: 125 mls/hr Documented By: LAN Ceftriaxone Sodium 1 gm/ (Sodium Chloride) 50 mls @ 100 mls/hr IV Q24H [facility] Potassium Phosphate (Kphos) 15 mmol in 250 mls @ 62.5 mls/hr IV Q4H [facility] Stop: 06/23/25 15:14 Last Admin: 06/23/25 12:21 Dose: 62.5 mls/hr Documented By: ELOY Magnesium Hydroxide (Milk Of Magnesia 30 Ml Oral.Susp) 30 ml PO DAILY PRN PRN Reason: Constipation Melatonin (Melatonin 3 Mg Tablet) 6 mg PO BEDTIME PRN PRN Reason: Insomnia Ondansetron HCl (Ondansetron Hcl 4 Mg/2 Ml Vial) 4 mg IVPUSH Q8H PRN PRN Reason: Nausea and Vomiting Pharmacy Consult (Consult Rx Etoh Phenob Im/Po) 1 each MISCELLANE ONCE PRN; Protocol PRN Reason: Consult order Phenobarbital (Phenobarbital 15 Mg Tablet) 45 mg PO BID [facility] Stop: 06/24/25 21:01 Last Admin: 06/23/25 08:27 Dose: 45 mg Documented By: ELOY Phenobarbital (Phenobarbital 30 Mg Tablet) 30 mg PO BID [facility] Stop: 06/26/25 21:01 Phenobarbital (Phenobarbital 15 Mg Tablet) 15 mg PO DAILY [facility] Stop: 06/28/25 09:01 Sodium Chloride (0.9 % Sodium Chloride Flush 3 Ml Syringe) 3 ml IVFLUSH QSHIFT [facility] Last Admin: 06/23/25 09:39 Dose: Not Given Documented By: ELOY Non-Admin Reason: IV Running Labs 06/23/25 05:05 06/23/25 05:05 Labs: Laboratory Results - last 24 hr 06/22/25 06/22/25 06/22/25 15:30 16:29 19:26 MCV 93.6 MCH 32.9 MCHC 35.2 H RDW 15.8 Plt Count 18 L* MPV 13.3 H Immature Gran % (Auto) Cancelled Neut % (Auto) Cancelled Lymph % (Auto) Cancelled [place] % (Auto) Cancelled Eos % (Auto) Cancelled Baso % (Auto) Cancelled Lymph # (Auto) Cancelled [place] # (Auto) Cancelled Eos # (Auto) Cancelled Baso # (Auto) Cancelled Abs Immat Gran (auto) Cancelled Absolute Neuts (auto) Cancelled Absolute Nucleated RBC 0.020 H Nucleated RBC % (auto) 0.4 H Neutrophils % (Manual) 76 H Band Neutrophils % 3 Lymphocytes % (Manual) 18 L Atypical Lymphs % (Man) 3 Monocytes % (Manual) Eosinophils % (Manual) Basophils % (Manual) Abs Neuts (Manual) 3.6 Lymphocytes # (Manual) 0.8 L Atyp Lymphs # (Manual) 0.1 Nucleated RBCs Platelet Estimate DECREASED Plt Morphology Comment NORMAL RBC Morphology NOTED Microcytosis 1+ (5-14) Schistocytes 1+ (0-2) Smear Tech's Comments MANUAL DIFF Hold Purple Top PT 14.8 H INR 1.2 H Anion Gap 23 H Estim Creat Clear Calc 65.4 Estimated GFR 49 Random Glucose 128 H Lactic Acid 3.0 H* Lactic Acid F/U @ 2Hr 2.1 H* Calcium 9.7 Phosphorus Magnesium 1.1 L* Total Bilirubin 3.8 H AST 297 H ALT 67 H Alkaline Phosphatase 231 H Total Creatine Kinase 1267 H Total Protein 8.1 H Albumin 3.9 Ethyl Alcohol < 10 Blood Type Antibody Screen 06/22/25 06/23/25 06/23/25 20:07 05:05 07:33 MCV 97.9 MCH 33.2 H MCHC 33.9 RDW 15.6 Plt Count 16 L* MPV 11.3 Immature Gran % (Auto) Cancelled Neut % (Auto) Cancelled Lymph % (Auto) Cancelled [place] % (Auto) Cancelled Eos % (Auto) Cancelled Baso % (Auto) Cancelled Lymph # (Auto) Cancelled [place] # (Auto) Cancelled Eos # (Auto) Cancelled Baso # (Auto) Cancelled Abs Immat Gran (auto) Cancelled Absolute Neuts (auto) Cancelled Absolute Nucleated RBC 0.020 H Nucleated RBC % (auto) 0.7 H Neutrophils % (Manual) 47 Band Neutrophils % 0 L Lymphocytes % (Manual) 49 H Atypical Lymphs % (Man) 1 Monocytes % (Manual) 1 L Eosinophils % (Manual) 1 Basophils % (Manual) 1 Abs Neuts (Manual) 1.4 L Lymphocytes # (Manual) 1.4 Atyp Lymphs # (Manual) Nucleated RBCs 1 H Platelet Estimate DECREASED Plt Morphology Comment NOTED RBC Morphology NOTED Microcytosis Schistocytes Smear Tech's Comments Hold Purple Top SEE NOTE PT INR Anion Gap 18 15 Estim Creat Clear Calc 85.3 86.3 Estimated GFR > 60 > 60 Random Glucose 99 121 H Lactic Acid Lactic Acid F/U @ 2Hr Calcium 8.3 L D 8.5 Phosphorus 2.6 L Magnesium 1.7 1.7 Total Bilirubin 1.3 H AST 146 H ALT 43 H Alkaline Phosphatase 156 H Total Creatine Kinase 749 H Total Protein 6.3 L Albumin 3.0 L Ethyl Alcohol Blood Type O Positive Antibody Screen NEGATIVE Assessment and Plan (1) Alcohol withdrawal seizure: Status: Acute (2) Thrombocytopenia: Status: Acute (3) Rhabdomyolysis: Status: Acute Plan 44-year-old female with known history of alcohol use disorder presents today after withdrawal seizure. In the ER found to be hypokalemic hypomagnesemic with a transaminitis. No further seizures since presentation to ER 1. Alcohol use disorder -CIWA scale 2-3 -phenobarb protocol -pulse dose IV Valium as indicated (none used thus far) -seizure precautions 2. Thrombocytopenia (in backdrop of chronic alcohol abuse) -platelet count down to 16 K -transfused 2 units of platelets today -recheck CBC in a.m.; further plans based on forthcoming data -hematology evaluation in a.m. 3. Rhabdomyolysis -mild without renal dysfunction -volume repletion with lactated Ringer's -repeat CPK in a.m. 4. Hypokalemia/hypophosphatemia -aggressive repletion -follow renals divalent in a.m. Full code Pneumatics Requires ongoing hospitalization for phenobarb protocol and aggressive repletion of diet balance IV. Quality Stroke Does the patient have a stroke diagnosis?: No VTE Prior VTE?: No VTE Risk Level:: Medical - moderate - high VTE Device Contraindication: N/A - Device Ordered VTE Drug Contraindication: Treatment Not Indicated
[2025-06-23 18:05] LABS: Appearance Urine Clear; Glucose Urine UA Negative (Negative); PH 5.5 (5.0-9.0); Specific Gravity - Urine >= 1.030 (1.005-1.025); UMIC TRIGGER UACC YES
[2025-06-23 18:10] LABS: UACC Culture Trigger YES
[2025-06-23 18:17] LABS: Cannabinoid Screen Urine Not Detected (Not Detect)
[2025-06-23 23:59] LABS: CDiff Gene PCR NEGATIVE (Negative)
[2025-06-24 03:19] VITALS: BP 146/81; PULSE 101; RESP 16; TEMP 36.8; O2SAT 97
[2025-06-24] MEDS: Lactated Ringers 1,000 ML 125 ML IVCONT (05:57)
[2025-06-24 07:33] LABS: Hematocrit 27.0 % (37.0-47.0); Hemoglobin 9.2 g/dl (12.0-16.0); Mean Corpuscular HGB Conc 34.1 g/dl (31.0-35.0); Mean Corpuscular Hemoglobin 33.6 pg (27.0-33.0); Mean Corpuscular Volume 98.5 fL (80.0-98.0); NRBC Abs Auto 0.000 X10*3/uL (0.0-0.012); NRBC Pct Auto 0.0 /100WBC (0.0-0.2); Red Blood Count 2.74 X10*6/uL (4.20-5.50)
[2025-06-24 07:35] LABS: Platelet Count 24 X10*3/uL (160-400); White Blood Count 2.1 X10*3/uL (4.8-10.8)
[2025-06-24 08:00] VITALS: BP 165/63; PULSE 99; RESP 18; TEMP 36.6; O2SAT 94
[2025-06-24 08:01] LABS: Alanine Aminotransferase 47 U/L (0-31); Albumin Level 2.7 g/dL (3.5-5.0); Alkaline Phosphatase 154 U/L (39-117); Anion Gap 11 (12-20); Aspartate Amino Transferase 189 U/L (5-31); Blood Urea Nitrogen 8 mg/dL (9-16); Calcium 7.9 mg/dL (8.4-10.2); Carbon Dioxide 31 mmol/L (22-29); Chloride 96 mmol/L (96-108); Creatinine Clr Calc Pharmacy 130.6; Estimated Glomerular Filt Rate > 60; Potassium 2.9 mmol/L (3.3-5.1); Sodium 135 mmol/L (135-145); Total Protein 6.1 g/dL (6.5-8.0)
[2025-06-24 08:06] LABS: Band Neutrophils Percent 1 % (3-5); Basophils Abs Manual 0.1 X10*3/uL (0.0-0.2); Basophils Percent Manual 3 % (0-2); Eosinophils Absolute Manual 0.1 X10*3/uL (0.0-0.4); Eosinophils Percent Manual 3 % (0-4); Lymphocytes Absolute Manual 1.1 X10*3/uL (1.2-4.9); Lymphocytes Percent Manual 53 % (20-40); Myelocytes Percent 1 %; Neutrophils Absolute Manual 0.8 X10*3/uL (2.0-8.3); Neutrophils Percent Manual 39 % (45-73)
[2025-06-24 08:08] LABS: HBS Num1 17.52 mIU/mL (0-7.99); HBc Num1 0.35 S/CO (0.00-0.79); HBsAGNum1 1.48 S/CO (0.00-0.99); Hepatitis A Antibody IgM 0.40 Index (0-0.79); ~HepC Num1 0.57 S/CO (0.00-0.79); ~Hepatitis A Antibody IgM Nonreactive (Nonreactive); ~Hepatitis B Surface Antibody REACTIVE (Nonreactive); ~Hepatitis C Antibody Nonreactive (Nonreactive)
[2025-06-24 08:10] LABS: RBC Morphology NOTED; Stomatocytes 1+ (5-14) /OIF
[2025-06-24 09:32] LABS: HBsAGNum2 Nonreactive; HBsAGNum3 Nonreactive; Hepatitis B Surface Antigen NEGATIVE (Negative)
[2025-06-24] MEDS: 0.9 % Sodium Chloride Flush 3 ML SYRINGE IVFLUSH ×2 (10:48→20:33)
[2025-06-24] MEDS: Potassium Chloride/H20 10 MEQ/100 ML PIGGYBACK 100 MEQ IV ×4 (10:49→15:10)
[2025-06-24 12:00] VITALS: BP 128/65; PULSE 90; RESP 18; TEMP 36.9; O2SAT 99
[2025-06-24 12:33] LABS: E. coli EAEC Not Detected (Not Detect.); E. coli EPEC Not Detected (Not Detect.); E. coli ETEC Not Detected (Not Detect.); E. coli STEC Not Detected (Not Detect.); Shigella sp./EIEC Not Detected (Not Detect.)
--- NOTE | 2025-06-24 14:11 | MHC.CM.PN ---
PT REPORTS SHE LIVES WITH FAMILY AND IS INDEPENDENT WITH CARE SHE HAS NO SERVICES OR DME SHE HAS NO HEALTH INSURANCE OR PCP [facility] AT BEDSIDE ASSISTING WITH INSURANCE DCP: HOME VIA [facility] [facility]
--- NOTE | 2025-06-24 15:09 | HO.WOUND ---
Wound Consult: Initial 44yr old admitted to [facility] on 06/22/25 18:12- See progress notes and H&P for detailed history.? Wound consult placed for Right Buttock.? Patient agreeable to assessment and photo documentation.? Right Buttock Etiology: ?Unclear Etiology - MASD vs Friction vs Abrasion Not consistent with Pressure ?Present on Admission Measurements: see charting for detailed measurement Wound Bed: improving wound bed - Triad adherent to wound bed - prior photo reviewed Drainage / Odor: None noted Edges: ? improving well defined Roberta wound: ? intct - No Induration, Fluctuance or Warmth noted Pain: minor pain noted Goals of Treatment: ? Triad for autolytic healing Perianal area noted for MASD - scattered partial thickness tissue loss. Triad in use. Recommendations: 1. Turn and Reposition every 2 hours and as needed for patient comfort.? Use pillows or wedges to support off loading positions. 2. Off Load all bony prominences with use of pillows and heel boots if needed.? Apply Preventative foams where needed. ? 3. Monitor for incontinence and moisture control, use barrier creams when needed for prevention and treatment. 4. Provide adequate and supplemental nutrition.? 5. Order low air loss mattress. 6. When applicable maintain blood glucose levels per Providers order. Right Buttock and Perianal - Off Load Pressure with Q2 hr turns and use of pillows - Cleanse with PH balance spray or wipes, pat dry. ?Apply thin layer of Triad to wound bed - only pat and dab no scrub and rub when soiling occurs. Reapply thin layer PRN after each episode of incontinence. Triad to provide an occlusive dressing, to allow moist healing with absorption of mild exudate, to minimize contamination of urine/stool or bacteria, and to soothe and protect roberta wound skin. Re-consult wound care Nurse for wound deterioration or wound changes.
[2025-06-24 15:31] VITALS: BP 170/79; PULSE 93; RESP 18; TEMP 36.4; O2SAT 99
--- NOTE | 2025-06-24 17:23 | P.PNIM_ITS ---
Subjective Subjective Date of Service: 06/24/25 Interval History: No issues overnight. CIWA 3 without seizures. Still copious amounts of diarrhea however GI panel negative as well as C diff Review of Systems Denies chest pain Denies shortness of breath Denies nausea vomiting diarrhea Denies fever chills Physical Exam 2 Vital Signs: Vital Signs: Last Vital Signs Temp 97.6 F 06/24/25 15:31 Pulse 93 06/24/25 15:31 Resp 18 06/24/25 15:31 BP 170/79 H 06/24/25 15:31 Pulse Ox 99 06/24/25 15:31 O2 Del Method Room Air 06/24/25 15:31 BMI result Body Mass Index 36.2 Const: Other: Awake alert disheveled no acute distress Resp: Other: Clear to auscultation bilaterally no rales rhonchi or wheezes Cardio: Other: No S4; positive S1-S2; no S3 murmurs rubs or gallops GI: Other: Soft nontender nondistended normoactive bowel sounds Neuro: Other: Cranial nerves 2-12 grossly intact as tested. Motor is 5/5 all extremities. Sensation is intact. Cognition appropriate. Gait not observed Extrem: Other: No edema bilaterally Objective Data Active Medications Acetaminophen (Acetaminophen 325 Mg Tablet) 650 mg PO Q6H PRN PRN Reason: Pain, Mild 1-3,fever,headache Last Admin: 06/24/25 10:51 Dose: 650 mg Documented By: MANISHA Calcium Carbonate (Calcium Carbonate 750 Mg Tab.Chew) 750 mg PO Q4H PRN PRN Reason: Heartburn Diazepam (Diazepam 10 Mg/2 Ml Cartridge) 10 mg IVPUSH Q6H PRN PRN Reason: agitation Ceftriaxone Sodium 1 gm/ (Sodium Chloride) 50 mls @ 100 mls/hr IV Q24H [facility] Last Infusion: 06/24/25 16:48 Dose: 0 mls/hr Documented By: MANISHA Magnesium Hydroxide (Milk Of Magnesia 30 Ml Oral.Susp) 30 ml PO DAILY PRN PRN Reason: Constipation Melatonin (Melatonin 3 Mg Tablet) 6 mg PO BEDTIME PRN PRN Reason: Insomnia Ondansetron HCl (Ondansetron Hcl 4 Mg/2 Ml Vial) 4 mg IVPUSH Q8H PRN PRN Reason: Nausea and Vomiting Pharmacy Consult (Consult Rx Etoh Phenob Im/Po) 1 each MISCELLANE ONCE PRN; Protocol PRN Reason: Consult order Phenobarbital (Phenobarbital 15 Mg Tablet) 45 mg PO BID [facility] Stop: 06/24/25 21:01 Last Admin: 06/24/25 10:48 Dose: 45 mg Documented By: MANISHA Phenobarbital (Phenobarbital 30 Mg Tablet) 30 mg PO BID [facility] Stop: 06/26/25 21:01 Phenobarbital (Phenobarbital 15 Mg Tablet) 15 mg PO DAILY [facility] Stop: 06/28/25 09:01 Sodium Chloride (0.9 % Sodium Chloride Flush 3 Ml Syringe) 3 ml IVFLUSH QSHIFT [facility] Last Admin: 06/24/25 16:41 Dose: Not Given Documented By: MANISHA Non-Admin Reason: IV Running Labs 06/24/25 06:24 06/24/25 06:24 Labs: Laboratory Results - last 24 hr 06/22/25 06/23/25 06/23/25 17:41 05:05 14:54 MCV MCH MCHC RDW Plt Count MPV Immature Gran % (Auto) Neut % (Auto) Lymph % (Auto) [place] % (Auto) Eos % (Auto) Baso % (Auto) Lymph # (Auto) [place] # (Auto) Eos # (Auto) Baso # (Auto) Abs Immat Gran (auto) Absolute Neuts (auto) Absolute Nucleated RBC Nucleated RBC % (auto) Neutrophils % (Manual) Band Neutrophils % Lymphocytes % (Manual) Eosinophils % (Manual) Basophils % (Manual) Myelocytes % Abs Neuts (Manual) Lymphocytes # (Manual) Eosinophils # (Manual) Basophils # (Manual) Platelet Estimate Plt Morphology Comment RBC Morphology Stomatocytes Smear Path Review SEE NOTE Anion Gap Estim Creat Clear Calc Estimated GFR Random Glucose Calcium Total Bilirubin AST ALT Alkaline Phosphatase Total Protein Albumin Urine Color Urine Appearance Urine pH Ur Specific [place] Urine Protein Urine Glucose (UA) Urine Ketones Urine Blood Urine Nitrite Ur Leukocyte Esterase Urine RBC Urine WBC Ur Squamous Epith Cells Urine Bacteria Hyaline Casts Stl C. cayetanensis PCR Not Detected Stool Rotavirus A PCR Not Detected Stl Adenov F PCR Not Detected Stool Astrovirus (PCR) Not Detected Stool Campylobacter PCR Not Detected Stool Cryptosporidium PCR Not Detected Stl Sh Tox Pr E STEC PCR Not Detected Stool E coli O157 PCR Not applicable Stl Enterotoxigenic E PCR Not Detected Stool EPEC (PCR) Not Detected Stool EAEC (PCR) Not Detected Stl E. histolytica PCR Not Detected Stool Giardia Lamblia PCR Not Detected Stl P. shigelloides PCR Not Detected Stool Salmonella PCR Not Detected Stool Sapovirus (PCR) Not Detected Stl Shigella/EIEC PCR Not Detected St Y.enterocolitica PCR Not Detected Stool Vibrio (PCR) Not Detected Stl Vibrio cholerae PCR Not Detected Stl Norovirus GI/GII PCR Not Detected Urine Opiates Screen Ur Buprenorphine Scrn Ur Oxycodone Screen Urine Methadone Screen Urine Fentanyl Screen Ur Barbiturates Screen Ur Phencyclidine Scrn Ur Amphetamines Screen U Benzodiazepines Scrn Urine Cocaine Screen U Marijuana (THC) Screen C. difficile Tox B Gene Hepatitis A IgM Ab Nonreactive Hep Bs Antigen Not Reportable Hep Bs Antigen (2) NEGATIVE Hep Bs Antibody REACTIVE Hep B Core Total Ab Nonreactive Hepatitis C Ab (EIA) Nonreactive 06/23/25 06/23/25 06/24/25 17:56 23:04 06:24 MCV 98.5 H MCH 33.6 H MCHC 34.1 RDW 15.3 Plt Count 24 L D MPV 12.3 Immature Gran % (Auto) Cancelled Neut % (Auto) Cancelled Lymph % (Auto) Cancelled [place] % (Auto) Cancelled Eos % (Auto) Cancelled Baso % (Auto) Cancelled Lymph # (Auto) Cancelled [place] # (Auto) Cancelled Eos # (Auto) Cancelled Baso # (Auto) Cancelled Abs Immat Gran (auto) Cancelled Absolute Neuts (auto) Cancelled Absolute Nucleated RBC 0.000 Nucleated RBC % (auto) 0.0 Neutrophils % (Manual) 39 L Band Neutrophils % 1 L Lymphocytes % (Manual) 53 H Eosinophils % (Manual) 3 Basophils % (Manual) 3 H Myelocytes % 1 Abs Neuts (Manual) 0.8 L Lymphocytes # (Manual) 1.1 L Eosinophils # (Manual) 0.1 Basophils # (Manual) 0.1 Platelet Estimate DECREASED Plt Morphology Comment NORMAL RBC Morphology NOTED Stomatocytes 1+ (5-14) Smear Path Review Anion Gap 11 L Estim Creat Clear Calc 130.6 Estimated GFR > 60 Random Glucose 100 Calcium 7.9 L D Total Bilirubin 0.5 AST 189 H ALT 47 H Alkaline Phosphatase 154 H Total Protein 6.1 L Albumin 2.7 L Urine Color Dark Yellow Urine Appearance Clear Urine pH 5.5 Ur Specific [place] >= 1.030 H Urine Protein 30 (1+) H Urine Glucose (UA) Negative Urine Ketones Negative Urine Blood Negative Urine Nitrite Positive H Ur Leukocyte Esterase Small (1+) H Urine RBC 0-2 Urine WBC 11-20 H Ur Squamous Epith Cells 3-5 Urine Bacteria Trace Hyaline Casts 0-2 Stl C. cayetanensis PCR Stool Rotavirus A PCR Stl Adenov F PCR Stool Astrovirus (PCR) Stool Campylobacter PCR Stool Cryptosporidium PCR Stl Sh Tox Pr E STEC PCR Stool E coli O157 PCR Stl Enterotoxigenic E PCR Stool EPEC (PCR) Stool EAEC (PCR) Stl E. histolytica PCR Stool Giardia Lamblia PCR Stl P. shigelloides PCR Stool Salmonella PCR Stool Sapovirus (PCR) Stl Shigella/EIEC PCR St Y.enterocolitica PCR Stool Vibrio (PCR) Stl Vibrio cholerae PCR Stl Norovirus GI/GII PCR Urine Opiates Screen Not Detected Ur Buprenorphine Scrn Not Detected Ur Oxycodone Screen Not Detected Urine Methadone Screen Positive H Urine Fentanyl Screen POSITIVE H Ur Barbiturates Screen POSITIVE H Ur Phencyclidine Scrn Not Detected Ur Amphetamines Screen Not Detected U Benzodiazepines Scrn Not Detected Urine Cocaine Screen POSITIVE H U Marijuana (THC) Screen Not Detected C. difficile Tox B Gene NEGATIVE Hepatitis A IgM Ab Hep Bs Antigen Hep Bs Antigen (2) Hep Bs Antibody Hep B Core Total Ab Hepatitis C Ab (EIA) Microbiology Microbiology Results: Microbiology 06/23/25 17:56 Urine Culture - Preliminary Urine clean catch - Clean Catch Midstream No growth to date. 06/22/25 17:41 Blood Culture - Preliminary Blood - Venous No growth after 24 hours. 06/22/25 16:29 Blood Culture - Preliminary Blood - Venous No growth after 24 hours. Assessment and Plan (1) Alcohol withdrawal seizure: Status: Acute (2) Thrombocytopenia: Status: Acute Plan 44-year-old female with known history of alcohol use disorder presents today after withdrawal seizure. In the ER found to be hypokalemic hypomagnesemic with a transaminitis. No further seizures since presentation to ER 1. Alcohol use disorder -CIWA scale 2-3 -phenobarb protocol -pulse dose IV Valium as indicated (none used thus far) -seizure precautions... None since admission 2. Thrombocytopenia (in backdrop of chronic alcohol abuse) -platelet count responded to transfusion -recheck CBC in a.m.; further plans based on forthcoming data -hematology evaluation in a.m. if indicated 3. Rhabdomyolysis -resolved with volume 4. Hypokalemia/hypophosphatemia -aggressive repletion -follow renals divalent in a.m. Full code Pneumatics Requires ongoing hospitalization for phenobarb protocol and aggressive repletion of diet balance IV. Quality Stroke Does the patient have a stroke diagnosis?: No VTE Prior VTE?: No VTE Risk Level:: Medical - moderate - high VTE Device Contraindication: N/A - Device Ordered VTE Drug Contraindication: Treatment Not Indicated
[2025-06-24 19:44] VITALS: BP 144/72; PULSE 98; RESP 16; TEMP 37.2; O2SAT 100
[2025-06-24 23:35] VITALS: BP 136/78; PULSE 109; RESP 16; TEMP 37.2; O2SAT 98
[2025-06-25 03:02] VITALS: BP 142/83; PULSE 94; RESP 16; TEMP 37.2; O2SAT 100
[2025-06-25 07:13] LABS: Hematocrit 28.3 % (37.0-47.0); Hemoglobin 9.5 g/dl (12.0-16.0); Mean Corpuscular HGB Conc 33.6 g/dl (31.0-35.0); Mean Corpuscular Hemoglobin 33.0 pg (27.0-33.0); Mean Corpuscular Volume 98.3 fL (80.0-98.0); NRBC Abs Auto 0.070 X10*3/uL (0.0-0.012); Red Blood Count 2.88 X10*6/uL (4.20-5.50); White Blood Count 4.1 X10*3/uL (4.8-10.8)
[2025-06-25 07:17] LABS: NRBC Pct Auto 1.7 /100WBC (0.0-0.2); Platelet Count 37 X10*3/uL (160-400)
[2025-06-25 07:24] LABS: Alanine Aminotransferase 70 U/L (0-31); Albumin Level 3.1 g/dL (3.5-5.0); Alkaline Phosphatase 175 U/L (39-117); Anion Gap 11 (12-20); Aspartate Amino Transferase 204 U/L (5-31); Blood Urea Nitrogen 7 mg/dL (9-16); Calcium 8.0 mg/dL (8.4-10.2); Carbon Dioxide 29 mmol/L (22-29); Chloride 97 mmol/L (96-108); Creatinine Clr Calc Pharmacy 120.6; Estimated Glomerular Filt Rate > 60; Potassium 3.2 mmol/L (3.3-5.1); Sodium 134 mmol/L (135-145); Total Protein 6.3 g/dL (6.5-8.0)
[2025-06-25 07:40] VITALS: BP 144/95; PULSE 106; RESP 16; TEMP 36.5; O2SAT 98
[2025-06-25 07:54] LABS: Atypical Lymph Absolute Manual 0.1 x10*3/uL; Atypical Lymphs Percent Manual 2 % (0-6); Band Neutrophils Percent 4 % (3-5); Basophils Percent Manual 1 % (0-2); Eosinophils Absolute Manual 0.2 X10*3/uL (0.0-0.4); Eosinophils Percent Manual 6 % (0-4); Lymphocytes Absolute Manual 1.6 X10*3/uL (1.2-4.9); Lymphocytes Percent Manual 40 % (20-40); Metamyelocytes Absolute 0.2 X10*3/uL; Metamyelocytes Percent 5 %; Monocytes Absolute Manual 0.2 X10*3/uL (0.1-1.2); Monocytes Percent Manual 5 % (2-11); Myelocytes Percent 1 %; Neutrophils Absolute Manual 1.6 X10*3/uL (2.0-8.3); Neutrophils Percent Manual 36 % (45-73)
[2025-06-25 07:57] LABS: Hypochromasia 1+ (5-14) /OIF; Polychromasia 1+ (0-2) /OIF; RBC Morphology NOTED
[2025-06-25] MEDS: 0.9 % Sodium Chloride Flush 3 ML SYRINGE IVFLUSH ×2 (08:45→17:29)
[2025-06-25 11:39] VITALS: BP 142/98; PULSE 100; RESP 18; TEMP 36.7; O2SAT 93
--- NOTE | 2025-06-25 15:38 | HO.PM.IMPN ---
Subjective Subjective Date of Service: 06/25/25 Interval History: Diarrhea slowly improving. CIWA 0-3. No seizures Review of Systems Denies chest pain Denies shortness of breath Denies nausea vomiting diarrhea Denies fever chills Physical Exam Vital Signs: Vital Signs: Last Vital Signs Temp 98.0 F 06/25/25 11:39 Pulse 100 06/25/25 11:39 Resp 18 06/25/25 11:39 BP 142/98 H 06/25/25 11:39 Pulse Ox 93 06/25/25 11:39 O2 Del Method Room Air 06/25/25 11:39 BMI result Body Mass Index 36.2 Const: Other: Awake alert disheveled no acute distress Resp: Other: Clear to auscultation bilaterally no rales rhonchi or wheezes Cardio: Other: No S4; positive S1-S2; no S3 murmurs rubs or gallops GI: Other: Soft nontender nondistended normoactive bowel sounds Neuro: Other: Cranial nerves 2-12 grossly intact as tested. Motor is 5/5 all extremities. Sensation is intact. Cognition appropriate. Gait not observed Extrem: Other: No edema bilaterally Objective Data Active Medications Acetaminophen (Acetaminophen 325 Mg Tablet) 650 mg PO Q6H PRN PRN Reason: Pain, Mild 1-3,fever,headache Last Admin: 06/25/25 09:06 Dose: 650 mg Documented By: ANY Calcium Carbonate (Calcium Carbonate 750 Mg Tab.Chew) 750 mg PO Q4H PRN PRN Reason: Heartburn Diazepam (Diazepam 10 Mg/2 Ml Cartridge) 10 mg IVPUSH Q6H PRN PRN Reason: agitation Ceftriaxone Sodium 1 gm/ (Sodium Chloride) 50 mls @ 100 mls/hr IV Q24H [facility] Last Infusion: 06/24/25 19:20 Dose: Infused Documented By: MANISHA Magnesium Hydroxide (Milk Of Magnesia 30 Ml Oral.Susp) 30 ml PO DAILY PRN PRN Reason: Constipation Melatonin (Melatonin 3 Mg Tablet) 6 mg PO BEDTIME PRN PRN Reason: Insomnia Ondansetron HCl (Ondansetron Hcl 4 Mg/2 Ml Vial) 4 mg IVPUSH Q8H PRN PRN Reason: Nausea and Vomiting Pharmacy Consult (Consult Rx Etoh Phenob Im/Po) 1 each MISCELLANE ONCE PRN; Protocol PRN Reason: Consult order Phenobarbital (Phenobarbital 30 Mg Tablet) 30 mg PO BID [facility] Stop: 06/26/25 21:01 Last Admin: 06/25/25 08:45 Dose: 30 mg Documented By: ANY Phenobarbital (Phenobarbital 15 Mg Tablet) 15 mg PO DAILY [facility] Stop: 06/28/25 09:01 Sodium Chloride (0.9 % Sodium Chloride Flush 3 Ml Syringe) 3 ml IVFLUSH QSHIFT [facility] Last Admin: 06/25/25 08:45 Dose: 3 ml Documented By: ANY Labs 06/25/25 06:28 06/25/25 06:28 Labs: Laboratory Results - last 24 hr 06/25/25 06:28 MCV 98.3 H MCH 33.0 MCHC 33.6 RDW 15.4 Plt Count 37 L D MPV 12.1 Immature Gran % (Auto) Cancelled Neut % (Auto) Cancelled Lymph % (Auto) Cancelled [place] % (Auto) Cancelled Eos % (Auto) Cancelled Baso % (Auto) Cancelled Lymph # (Auto) Cancelled [place] # (Auto) Cancelled Eos # (Auto) Cancelled Baso # (Auto) Cancelled Abs Immat Gran (auto) Cancelled Absolute Neuts (auto) Cancelled Absolute Nucleated RBC 0.070 H Nucleated RBC % (auto) 1.7 H Neutrophils % (Manual) 36 L Band Neutrophils % 4 Lymphocytes % (Manual) 40 Atypical Lymphs % (Man) 2 Monocytes % (Manual) 5 Eosinophils % (Manual) 6 H Basophils % (Manual) 1 Metamyelocytes % 5 Myelocytes % 1 Abs Neuts (Manual) 1.6 L Lymphocytes # (Manual) 1.6 Atyp Lymphs # (Manual) 0.1 Monocytes # (Manual) 0.2 Eosinophils # (Manual) 0.2 Metamyelocytes # 0.2 Nucleated RBCs 2 H Platelet Estimate DECREASED Plt Morphology Comment NORMAL RBC Morphology NOTED Polychromasia 1+ (0-2) Hypochromasia 1+ (5-14) Anion Gap 11 L Estim Creat Clear Calc 120.6 Estimated GFR > 60 Random Glucose 100 Calcium 8.0 L Total Bilirubin 0.4 AST 204 H ALT 70 H Alkaline Phosphatase 175 H Total Protein 6.3 L Albumin 3.1 L Microbiology Microbiology Results: Microbiology 06/23/25 17:56 Urine Culture - Final Urine clean catch - Clean Catch Midstream No growth. 06/22/25 17:41 Blood Culture - Preliminary Blood - Venous No growth after 48 hours. 06/22/25 16:29 Blood Culture - Preliminary Blood - Venous No growth after 48 hours. Assessment and Plan (1) Alcohol withdrawal seizure: Status: Acute (2) Thrombocytopenia: Status: Acute Plan 44-year-old female with known history of alcohol use disorder presents today after withdrawal seizure. In the ER found to be hypokalemic hypomagnesemic with a transaminitis. No further seizures since presentation to ER 1. Alcohol use disorder -CIWA scale 0-3 -phenobarb protocol -pulse dose IV Valium as indicated (none used thus far) -seizure precautions... None since admission 2. Thrombocytopenia (in backdrop of chronic alcohol abuse) -platelet count responded to transfusion... Continues to rise -recheck CBC in a.m.; further plans based on forthcoming data 3. Rhabdomyolysis -resolved with volume 4. Hypokalemia/hypophosphatemia -aggressive repletion -follow renals divalent in a.m. Full code Pneumatics Requires ongoing hospitalization for phenobarb protocol and aggressive repletion of diet balance IV. Quality Stroke Does the patient have a stroke diagnosis?: No VTE Prior VTE?: No VTE Risk Level:: Medical - moderate - high VTE Device Contraindication: N/A - Device Ordered VTE Drug Contraindication: Treatment Not Indicated
[2025-06-25 15:55] VITALS: BP 163/99; PULSE 102; RESP 20; TEMP 36.8; O2SAT 100
[2025-06-25 20:00] VITALS: BP 149/96; PULSE 117; RESP 19; TEMP 36.2; O2SAT 100
[2025-06-25 23:37] VITALS: BP 149/77; PULSE 117; RESP 18; TEMP 36.9; O2SAT 98
[2025-06-26] MEDS: 0.9 % Sodium Chloride Flush 3 ML SYRINGE IVFLUSH ×2 (01:12→08:35)
[2025-06-26 03:10] VITALS: BP 126/74; PULSE 109; RESP 18; TEMP 36.4; O2SAT 99
[2025-06-26 07:37] VITALS: BP 120/79; PULSE 90; RESP 18; TEMP 37.2; O2SAT 100
[2025-06-26 07:47] LABS: Hematocrit 29.4 % (37.0-47.0); Hemoglobin 9.7 g/dl (12.0-16.0); Mean Corpuscular HGB Conc 33.0 g/dl (31.0-35.0); Mean Corpuscular Hemoglobin 33.2 pg (27.0-33.0); Mean Corpuscular Volume 100.7 fL (80.0-98.0); NRBC Abs Auto 0.020 X10*3/uL (0.0-0.012); NRBC Pct Auto 0.6 /100WBC (0.0-0.2); Red Blood Count 2.92 X10*6/uL (4.20-5.50)
[2025-06-26 07:51] LABS: Platelet Count 37 X10*3/uL (160-400); WBC ABN SCTR FOR CBC 1
--- NOTE | 2025-06-26 08:12 | P.CDIM_ITS ---
PROVIDER RESPONSE TEXT: To clarify, the appropriate diagnosis supported by the clinical indicators: Pancytopenia QUERY TEXT: PHYSICIAN'S DOCUMENTATION REQUEST Date of Query: 06/25/2025 08:29 AM EST Patient Name: ODALYS ARELLANO Admit Date: 06/22/2025 Dear Dorian Maher DO, A review of the medical record indicates additional documentation may be needed. Please review below and update the documentation accordingly. Clinical Indicators: LABS: WBC 4.1 RBC 2.8 L PLT 37 L Abs. Neuts. 106 L Chronic alcohol use, cocaine use, thrombocytopenia, transaminitis. Based on the above, is there a diagnosis that correlates with these lab findings? Pancytopenia Other specified (specify type) Other (explain) Clinically unable to determine (explain) Thank you, Grace Prieto, CCS, CDIS Use of terms such as suspected, likely, concern for, or probable (associated with a specific diagnosis that is being evaluated, monitored, or treated as if it exists) are acceptable and can be coded in the inpatient setting, when documented at the time of discharge. Please use your independent medical judgment in providing your response. THIS QUERY IS PART OF THE PERMANENT MEDICAL RECORD
--- NOTE | 2025-06-26 08:12 | P.CDIM_ITS ---
PROVIDER RESPONSE TEXT: To clarify, the appropriate diagnosis supported by the clinical indicators: Other (explain): not significant QUERY TEXT: PHYSICIAN'S DOCUMENTATION REQUEST Date of Query: 06/25/2025 09:24 AM EST Patient Name: ODALYS ARELLANO Admit Date: 06/22/2025 Dear Dorian Maher DO, A review of the medical record indicates additional documentation may be needed. Please review below and update the documentation accordingly. Clinical Indicators: LABS: LA 3.0/2.1 Fluids ED 06/22 - Clinical impression: Lactic, acidosis Based on the above, is there a diagnosis that correlates with these lab findings? Acute lactic acidosis Chronic lactic acidosis Labs indicate a diagnosis of (please specify) Other (explain) Clinically unable to determine (explain) Thank you, Grace Prieto, CCS, CDIS Use of terms such as suspected, likely, concern for, or probable (associated with a specific diagnosis that is being evaluated, monitored, or treated as if it exists) are acceptable and can be coded in the inpatient setting, when documented at the time of discharge. Please use your independent medical judgment in providing your response. THIS QUERY IS PART OF THE PERMANENT MEDICAL RECORD
[2025-06-26 08:19] LABS: Atypical Lymphs Percent Manual 2 % (0-6); Band Neutrophils Percent 6 % (3-5); Basophils Percent Manual 1 % (0-2); Eosinophils Percent Manual 8 % (0-4); Lymphocytes Percent Manual 33 % (20-40); Metamyelocytes Percent 4 %; Monocytes Percent Manual 22 % (2-11); Myelocytes Percent 2 %; Neutrophils Percent Manual 22 % (45-73)
[2025-06-26 08:22] LABS: Large Platelet PRESENT; Macrocytosis 1+ (5-14) /OIF; Polychromasia 1+ (0-2) /OIF; RBC Morphology NOTED
[2025-06-26 09:02] LABS: Atypical Lymph Absolute Manual 0.1 x10*3/uL; Eosinophils Absolute Manual 0.3 X10*3/uL (0.0-0.4); Lymphocytes Absolute Manual 1.1 X10*3/uL (1.2-4.9); Metamyelocytes Absolute 0.1 X10*3/uL; Monocytes Absolute Manual 0.7 X10*3/uL (0.1-1.2); Myelocytes Absolute 0.1 X10*/uL; Neutrophils Absolute Manual 1.0 X10*3/uL (2.0-8.3); White Blood Count 3.4 X10*3/uL (4.8-10.8)
--- NOTE | 2025-06-26 09:51 | MHC.CM.PN ---
Addendum entered by Mary Chapin RN 06/26/25 13:09: PT GIVEN [facility] SHUTTLE VOUCHER AND SET UP FOR 2:30PM, NSG AWARE. Original Note: ANTIC PT WILL BE MEDICALLY CLEARED FOR DC HOME SELF CARE, PT WILL LIKELY NEED [facility] SHUTTLE FOR TRANSPORT.
[2025-06-26 11:40] VITALS: BP 149/98; PULSE 100; RESP 20; TEMP 36.8; O2SAT 99
--- NOTE | 2025-06-26 12:33 | PM.DS ---
DS: Providers Provider Date of Service: 06/26/25 Date of admission: 06/22/25 18:12 Date of discharge: 06/26/25 Primary care physician: None Physician Consults: 06/24/25 15:15 Consult to Wound Care [place]ine [place]ing [place] [facility] [place] Reason for consultation: Right Buttock and Perianal 06/26/25 10:45 Addiction Medicine Provider Routine Consulting Provider: Addiction Covering Reason for consultation: CIWA DS: Diagnosis Discharge Diagnosis (1) Alcohol withdrawal seizure: Status: Acute (2) Thrombocytopenia: Status: Acute DS: Summary Hospital Course Hospital Course: 44-year-old female with known history of alcohol abuse disorder presents after likely withdrawal seizure at home. She states she drinks about 10 or more nips a day for the last several weeks and decided she wanted to quit yesterday so she through all of her alcohol away. Friends noticed seizure activity and called 911 for transport to ER. In the emergency room, workup including CTs of abdomen chest head and cervical spine failed to demonstrate any acute pathology. Lab significant for thrombocytopenia with a platelet count of 18,000; INR 1.2; hypokalemia 3.2 and a magnesium of 1.1. AST/ALT 297/67 total creatinine kinase 1267. At this time she will be admitted for phenobarb protocol for alcohol withdrawal and divalent repletion Hospital Course Patient admitted to telemetry where monitor failed to demonstrate any acute dysrhythmias. She progressed well with the CIWA scale and phenobarb protocol. No seizures. She did have copious diarrhea upon admission however all stool studies were negative. She was essentially pancytopenic on admission; thought to be related to chronic alcohol use. She was transfused 2 units of platelets and now her numbers are on the rise. At this point in time she is anxious for discharge and believe that is medically acceptable. I offered addiction Medicine but she adamantly refuses. States she can do it on her own. Counseled against the same. She has no interest in following up with Hematology. Through it all she has been polite and cooperative she will discharge with a strong recommendation not to drink Time Attestation Discharge Coordination Time (in mins): 35 Quality: Safe Use of Opioids Does Pt have an Active Cancer Diagnosis on the Problem List?: No Quality: Stroke Does the patient have a stroke diagnosis?: No Physical Exam Vital Signs: Vital Signs: Last Vital Signs Temp 98.3 F 06/26/25 11:40 Pulse 100 06/26/25 11:40 Resp 20 06/26/25 11:40 BP 149/98 H 06/26/25 11:40 Pulse Ox 99 06/26/25 11:40 O2 Del Method Room Air 06/26/25 11:40 BMI result Body Mass Index 36.2 Const: Other: Awake alert disheveled no acute distress Resp: Other: Clear to auscultation bilaterally no rales rhonchi or wheezes Cardio: Other: No S4; positive S1-S2; no S3 murmurs rubs or gallops GI: Other: Soft nontender nondistended normoactive bowel sounds Neuro: Other: Cranial nerves 2-12 grossly intact as tested. Motor is 5/5 all extremities. Sensation is intact. Cognition appropriate. Gait not observed Extrem: Other: No edema bilaterally DS: Data Data Completed and Pending Labs on day of discharge: Laboratory Results - last 24 hr 06/26/25 07:09 WBC 3.4 L RBC 2.92 L Hgb 9.7 L Hct 29.4 L MCV 100.7 H MCH 33.2 H MCHC 33.0 RDW 16.1 H Plt Count 37 L MPV 11.8 Immature Gran % (Auto) Cancelled Neut % (Auto) Cancelled Lymph % (Auto) Cancelled [place] % (Auto) Cancelled Eos % (Auto) Cancelled Baso % (Auto) Cancelled Lymph # (Auto) Cancelled [place] # (Auto) Cancelled Eos # (Auto) Cancelled Baso # (Auto) Cancelled Abs Immat Gran (auto) Cancelled Absolute Neuts (auto) Cancelled Absolute Nucleated RBC 0.020 H Nucleated RBC % (auto) 0.6 H Neutrophils % (Manual) 22 L Band Neutrophils % 6 H Lymphocytes % (Manual) 33 Atypical Lymphs % (Man) 2 Monocytes % (Manual) 22 H Eosinophils % (Manual) 8 H Basophils % (Manual) 1 Metamyelocytes % 4 Myelocytes % 2 Abs Neuts (Manual) 1.0 L Lymphocytes # (Manual) 1.1 L Atyp Lymphs # (Manual) 0.1 Monocytes # (Manual) 0.7 Eosinophils # (Manual) 0.3 Metamyelocytes # 0.1 Myelocytes # 0.1 Platelet Estimate DECREASED Large Platelets PRESENT Plt Morphology Comment NOTED RBC Morphology NOTED Polychromasia 1+ (0-2) Macrocytosis 1+ (5-14) Preliminary micro results at discharge 06/22/25 17:41 Blood Culture - Preliminary Blood - Venous No growth after 48 hours. 06/22/25 16:29 Blood Culture - Preliminary Blood - Venous No growth after 48 hours. Discharge Plan Discharge Anticipated Discharge Date/Time: 06/26/25 12:28 Patient Disposition: Home, Self-Care Discharge Diagnosis: Alcohol withdrawal Referrals: Physician,None [Primary Care Provider, Medical] - 1 Week Discharge Medications: No Action No Known Home Meds Discharge Orders: Discharge Order (Routine); Ordered 06/26/25 Ordered By: Dorian Maher Diet: Advance to usual diet Activity on Discharge: As tolerated Stand Alone Forms: Patient Portal Discharge page Print Language: Vietnamese Care Plan Goals: Avoid alcohol Health Concerns: Need to arrange PCP for outpatient follow up Plan of Treatment: Imodium as needed for diarrhea Assessment: See discharge summary
--- NOTE | 2025-06-26 15:42 | HO.ADDICTCON ---
History of Present Illness Date of Service: 06/26/2025 Chief Complaint: alcohol withdrawal Reason for Consult: AUD HPI Narrative: Patient is a 44 year old female with history of AUD, who presented to [facility] after a witnessed seizure at home. Patient seen in room 477., as she was preparing for discharge (consult received morning of discharge) Chart review shows that patient reported drinking 10+nips daily for about a week, then abruptly stopped--which likely led to withdrawal seizure. Patient is awake, alert, pleasant, but minimally engaged in interview as she packing to leave. She states that she has struggled with AUD for many years. Was surprised that she had a seizure and withdrawal as she was only drinking for a week . Prior to that she had been drinking, but it was more sporadic, and less in amount Has been in various treatment settings-[facility], [facility], [facility] Denies any history of BRENDA--and is clear that she is not interested in exploring this avenue She is currently connected to multiple recovery supports, including her family and a sponsor which she has reconnected with She identifies isolation and worsening depressive sx related to her mother currently being in Hospice as contributing factors to her binge drinking We discussed safer drinking strategies and reconnecting to recovery supports as a way to support her goal of eventual abstinence She denies any withdrawal sx, and feels ready for discharge Medical Evaluation Reviewed: Yes Review of Systems Constitutional: Reports as per HPI and Reports no additional constitutional complaints Diagnostics Vital Signs (24Hr): Vital Signs - 24 hr 06/25/25 15:55 06/25/25 20:00 06/25/25 23:37 Temperature 98.2 F 97.1 F 98.4 F Pulse Rate 102 H 117 H 117 H Respiratory Rate 20 19 18 Blood Pressure 163/99 H 149/96 H 149/77 H Pulse Oximetry 100 100 98 Oxygen Delivery Method Room Air Room Air Room Air 06/26/25 03:10 06/26/25 07:37 06/26/25 11:40 Temperature 97.6 F 98.9 F 98.3 F Pulse Rate 109 H 90 100 Respiratory Rate 18 18 20 Blood Pressure 126/74 120/79 149/98 H Pulse Oximetry 99 100 99 Oxygen Delivery Method Room Air Room Air Room Air BMI result Body Mass Index 36.2 Labs 06/26/25 07:09 06/25/25 06:28 Labs: Laboratory Results - last 48 hr 06/25/25 06/26/25 06:28 07:09 WBC 4.1 L 3.4 L RBC 2.88 L 2.92 L Hgb 9.5 L 9.7 L Hct 28.3 L 29.4 L MCV 98.3 H 100.7 H MCH 33.0 33.2 H MCHC 33.6 33.0 RDW 15.4 16.1 H Plt Count 37 L D 37 L MPV 12.1 11.8 Immature Gran % (Auto) Cancelled Cancelled Neut % (Auto) Cancelled Cancelled Lymph % (Auto) Cancelled Cancelled [place] % (Auto) Cancelled Cancelled Eos % (Auto) Cancelled Cancelled Baso % (Auto) Cancelled Cancelled Lymph # (Auto) Cancelled Cancelled [place] # (Auto) Cancelled Cancelled Eos # (Auto) Cancelled Cancelled Baso # (Auto) Cancelled Cancelled Abs Immat Gran (auto) Cancelled Cancelled Absolute Neuts (auto) Cancelled Cancelled Absolute Nucleated RBC 0.070 H 0.020 H Nucleated RBC % (auto) 1.7 H 0.6 H Neutrophils % (Manual) 36 L 22 L Band Neutrophils % 4 6 H Lymphocytes % (Manual) 40 33 Atypical Lymphs % (Man) 2 2 Monocytes % (Manual) 5 22 H Eosinophils % (Manual) 6 H 8 H Basophils % (Manual) 1 1 Metamyelocytes % 5 4 Myelocytes % 1 2 Abs Neuts (Manual) 1.6 L 1.0 L Lymphocytes # (Manual) 1.6 1.1 L Atyp Lymphs # (Manual) 0.1 0.1 Monocytes # (Manual) 0.2 0.7 Eosinophils # (Manual) 0.2 0.3 Metamyelocytes # 0.2 0.1 Myelocytes # 0.1 Nucleated RBCs 2 H Platelet Estimate DECREASED DECREASED Large Platelets PRESENT Plt Morphology Comment NORMAL NOTED RBC Morphology NOTED NOTED Polychromasia 1+ (0-2) 1+ (0-2) Hypochromasia 1+ (5-14) Macrocytosis 1+ (5-14) Sodium 134 L Potassium 3.2 L Chloride 97 Carbon Dioxide 29 Anion Gap 11 L BUN 7 L Creatinine 0.65 Estim Creat Clear Calc 120.6 Estimated GFR > 60 Random Glucose 100 Calcium 8.0 L Total Bilirubin 0.4 AST 204 H ALT 70 H Alkaline Phosphatase 175 H Total Protein 6.3 L Albumin 3.1 L Mental Status Exam Mental Status Exam Patient Appearance: Appropriate Level of Consciousness: Awake, Appropriate and Alert Patient Behavior: Appropriate and Cooperative Affect Description: Calm Speech Pattern: Clear Thought Process: Intact Thought Content: positive for Intact Judgement: Good Medications Allergies Allergies Allergy/AdvReac Type Severity Reaction Status Date / Time Penicillins (PENICILLINS) Allergy Intermediate RASH Verified 06/22/25 15:21 codeine (CODEINE) Allergy Unknown GI UPSET Verified 06/22/25 15:21 Assessment & Plan Assessment & Plan (1) Alcohol use disorder, severe, dependence: Status: Acute Code(s): F10.20 - Alcohol dependence, uncomplicated Assessment and Plan: risk reduction discussion, including reminders to eat and if possible taking multivitamin Plans to stay connected to recovery supports, including her family and sponsor. Very familiar with recovery support system patient declined BRENDA, referral to provider for AUD treatment follow up Total time managing care of this patient today _20___ minutes. [facility] Social History Social History Household Members: Friend(s) Housing: Apartment Do you presently have visiting nurse or other home services: No Alcohol intake: current Alcohol type: hard liquor Patient Tobacco Use Status: Never used Tobacco Substance Use Type: Crack/Cocaine service: No
== END 2025-06-26 13:36 | disposition home or self-care (01) | DRG 775 ==
LOC: HO.ED 17:14 → HO.EDOVER 18:22 → HO.IMC 06-23 16:18
PROVIDERS: Internal Medicine; Physician Assistant; Admitting Provider Hospitalist; Emergency Provider Emergency Medicine; Visit Provider Hospitalist
DX: F10.239 Alcohol dependence with withdrawal, unspecified (principal); D61.818 Other pancytopenia; M62.82 Rhabdomyolysis; E83.39 Other disorders of phosphorus metabolism; E87.6 Hypokalemia; E83.42 Hypomagnesemia; R56.9 Unspecified convulsions; R19.7 Diarrhea, unspecified; S00.03XA Contusion of scalp, initial encounter; W18.2XXA Fall in (into) shower or empty bathtub, initial encounter
CPT/HCPCS: 36415; 70450; 71260; 72125; 73522; 74177; 80048; 80053; 80307; 81001; 82550; 83605; 83735; 84100; 85007; 85025; 85027; 85610; 86704; 86706; 86709; 86803; 86850; 86900; 86901; 87040; 87086; 87340; 87493; 87507; 90715; 93005; 99285; J0696; J2560; J3360; J3475; J3480; J7120; P9073; Q9967

== ENCOUNTER → 2025-06-22 15:20 | Outpatient (BNV) | payer MEDICAID, SELFPAY | PROVIDERS: Emergency Provider Emergency Medicine; Visit Provider Radiology Diagnostic Radiology | DX: S39.91XA Unspecified injury of abdomen, initial encounter (principal); S29.9XXA Unspecified injury of thorax, initial encounter; M54.2 Cervicalgia; M47.812 Spondylosis without myelopathy or radiculopathy, cervical region; S00.03XA Contusion of scalp, initial encounter; S00.83XA Contusion of other part of head, initial encounter; Z04.3 Encounter for examination and observation following other accident | CPT/HCPCS: 70450; 71260; 72125; 73522; 74177 ==

== ENCOUNTER → 2025-06-22 17:14 | Outpatient (BNV) | payer MEDICAID, SELFPAY | PROVIDERS: Admitting Provider Hospitalist; Emergency Provider Emergency Medicine; Visit Provider Internal Medicine Cardiovascular Disease | DX: R94.31 Abnormal electrocardiogram [ECG] [EKG] (principal); Z04.3 Encounter for examination and observation following other accident | CPT/HCPCS: 93010 ==

== ENCOUNTER → 2025-06-22 18:12 | Outpatient (BNV) | payer MEDICAID, SELFPAY | PROVIDERS: Admitting Provider Hospitalist; Emergency Provider Emergency Medicine; Visit Provider Hospitalist | DX: F10.930 Alcohol use, unspecified with withdrawal, uncomplicated (principal); R56.9 Unspecified convulsions; D69.6 Thrombocytopenia, unspecified | CPT/HCPCS: 99223; 99232; 99233 ==

== ENCOUNTER → 2025-06-22 18:12 | Outpatient (BNV) | payer MEDICAID, SELFPAY | PROVIDERS: Admitting Provider Hospitalist; Emergency Provider Emergency Medicine; Visit Provider Nurse Practitioner Psychiatric/Mental Health | DX: F10.20 Alcohol dependence, uncomplicated (principal) | CPT/HCPCS: 99221 ==